=== PATIENT | male | born 1950 | race Caucasian/White ===

== ENCOUNTER 2022-04-12 06:38 | Day surgery (SDC) | payer OTHER ==
[~2022-04-12] VITALS: Ht 188 cm; Wt 95.7 kg
[2022-04-12] MEDS ORDERED: AMLO5 PO (07:37)
--- NOTE | 2022-04-12 07:45 | NUR ---
04/12/22 0745 Rojelio Waters CALL LIGHT WITHIN REACH. TETRACAINE AT 0735 IN RIGHT EYE AND PLEDGETT AT 0737 IN RIGHT EYE.
== END 2022-04-12 09:13 | disposition home or self-care (01) ==
LOC: ORSCSDS 06:38
PROVIDERS: Ophthalmology
PROC: 08RJ3JZ Replacement of Right Lens with Synthetic Substitute, Percutaneous Approach (ICD-10-PCS; principal; 2022-04-12 08:30)
DX: H25.11 Age-related nuclear cataract, right eye (principal); H40.9 Unspecified glaucoma; I10 Essential (primary) hypertension; Z87.891 Personal history of nicotine dependence; Z79.899 Other long term (current) drug therapy
CPT/HCPCS: J2250; J3010; J3301; J7040; V2632

== ENCOUNTER 2025-08-25 06:11 | Day surgery (SDC) | payer OTHER ==
[~2025-08-25] VITALS: Ht 185.4 cm; Wt 95.1 kg
[2025-08-25] VITALS (23 sets, daily range): BP systolic 104–163; BP diastolic 54–100
[~2025-08-25 06:11] MED LIST: AMLO5 PO; EPCLUSA 400 MG1 EAC1 PO; LATA.005SO BOTHEYES
--- NOTE | 2025-08-25 06:31 | NUR ---
REPORTS TAKING ALL OF COLON PREP WITH LIGHT YELLOW, CLEAR RESULTS. PLAN FOR , XENIA, TO DRIVE HOME.
--- NOTE | 2025-08-25 06:33 | NUR ---
DENIES ALLERGY TO PENICILLIN, REMOVED FROM ALLERGY LIST.
--- NOTE | 2025-08-25 07:00 | NUR ---
REPORTS LAST DRINK OF CLEAR FLUIDS 0 TODAY.
--- NOTE | 2025-08-25 07:32 | NUR ---
08/25/25 0732 Renee Munoz CONFIRMED AND REVIEWED H&P, MEDCICATIONS, ALLERGIES, MEDICAL HISTORY, RESPIRATORY HISTORY, VITAL SIGNS, 3-LEAD EKG, CONSENTS, AND PHYSICIAN ORDERS. PATIENT CONFIRMS NPO STATUS AND AGREES WITH SCHEDULED PROCEDURE. MONITOR INTACT WITH CONTINUOUS PULSE OXIMETRY, CAPNOGRAPHY, 3-LEAD EKG, INTERMITTENT BP. SUPPLEMENTAL O2 TO BE TITRATED THROUGHOUT PROCEDURE TO MAINTAIN O2 SATURATION ABOVE 90%. PATIENT DETERMINED TO BE ASA APPROPRIATE FOR PROPOFOL SEDATION PRIOR TO START OF PROCEDURE BY DR. HESTER. MALLAMPATI CLASS 2 AIRWAY: COMPLETE VISUALIZATION OF THE UVULA.
--- NOTE | 2025-08-25 08:50 | NUR ---
Patient States Post-Procedure ride home has been arranged. Discharged via wheelchair to private car for ride home. Discharge instructions reviewed with patient. Patient verbalizes understanding. Copy given to patient to take home.
== END 2025-08-25 22:30 | disposition home or self-care (01) ==
LOC: ORSCMMR 06:11 → ORD 12:00 → ORSCMMR 22:30
PROVIDERS: Family Medicine
PROC: 0DBP8ZX Excision of Rectum, Via Natural or Artificial Opening Endoscopic, Diagnostic (ICD-10-PCS; principal; 2025-08-25 07:30)
PROC: 0DBH8ZX Excision of Cecum, Via Natural or Artificial Opening Endoscopic, Diagnostic (ICD-10-PCS; principal; 2025-08-25 07:30)
PROC: 0DBN8ZX Excision of Sigmoid Colon, Via Natural or Artificial Opening Endoscopic, Diagnostic (ICD-10-PCS; principal; 2025-08-25 07:30)
DX: Z12.11 Encounter for screening for malignant neoplasm of colon (principal); D12.0 Benign neoplasm of cecum; K62.1 Rectal polyp; K63.5 Polyp of colon; K57.30 Diverticulosis of large intestine without perforation or abscess without bleeding; R19.5 Other fecal abnormalities; I10 Essential (primary) hypertension; F41.9 Anxiety disorder, unspecified; Z79.899 Other long term (current) drug therapy; Z87.891 Personal history of nicotine dependence
CPT/HCPCS: 88305; J2704; J7120